=== PATIENT | male | born 1970 | race Caucasian/White ===

== ENCOUNTER 2018-03-08 10:29 | Emergency (ER) | payer BC ==
--- NOTE | 2018-03-08 11:05 | ED ---
Influenza-Like Illness - HPI Summary HPI Summary: This pt is a 47 y/o male [facility] c/o fatigue, chills, and fever. Pt reports he became very fatigued yesterday and around 16:00 yesterday he was very cold "freezing." He states he took his temperature at 21:00 and his temperature was 103F. Pt took Tylenol at 21:30 with mild relied. Pt notes that at 02:00 today his temperature was 102.5F. At 06:00 today his temperature was 100F and he took Advil. Pt states that this morning he woke up "drenched in sweat." Additionally pt reports sore throat. Denies cough, congestion, SOB, chest pain, ear ache. Pt currently states feeling better. He called his PCP today and was advised to come to the ED. PMHx includes asthma and state he has not been using his inhalers as prescribed. - History of Current Complaint Chief Complaint: EDFluSymptoms Time Seen by Provider: 03/08/18 10:54 Hx Obtained From: Patient Onset/Duration: Lasting Hours, Resolved Severity: Moderate Associated Signs & Symptoms: Fever, T Max - at 103F, Myalgia, Sore Throat - Allergy/Home Medications Allergies/Adverse Reactions: Allergies Allergy/AdvReac Type Severity Reaction Status Date / Time Penicillins Allergy Hives Verified 03/08/18 10:39 Home Medications: Home Medications Methylphenidate TAB* [Ritalin TAB*] 20 mg PO DAILY PRN MDD 60mg 03/08/18 [ History Confirmed 03/08/18] Metoprolol Succinate XL TAB* [Toprol XL TAB*] 25 mg PO BEDTIME 03/08/18 [ History Confirmed 03/08/18] Rosuvastatin (NF) [Crestor (NF)] 10 mg PO 1700 03/08/18 [History Confirmed 03/08] PMH/Surg Hx/FS Hx/Imm Hx Endocrine/Hematology History: Denies: Hx Diabetes Comment Only: Other Endocrine/Hematological Disorders - psoriasis Cardiovascular History: Reports: Hx Hypertension Denies: Hx Congestive Heart Failure Respiratory History: Reports: Hx Asthma History: Comment Only: Hx Renal Disease - KIDNEY STONES Musculoskeletal History: Reports: Hx Back Problems - neck also Sensory History: Reports: Hx Contacts or Glasses Opthamlomology History: Reports: Hx Contacts or Glasses - Surgical History Surgery Procedure, Year, and Place: RT.INGUINAL REPAIR, RT.KNEE, ACL REPAIR Infectious Disease History: No Infectious Disease History: Denies: Traveled Outside the [place] in Last 30 Days - Family History Known Family History: Negative: Cardiac Disease, Hypertension, Diabetes - Social History Alcohol Use: None Hx Substance Use: No Substance Use Type: Reports: None Hx Tobacco Use: No Smoking Status (MU): Former Smoker Have You Smoked in the Last Year: No Review of Systems Positive: Fever, Chills, Fatigue, Skin Diaphoresis Positive: Sore Throat. Negative: Ear Ache Negative: Chest Pain Negative: Shortness Of Breath, Cough Negative: Abdominal Pain Genitourinary: Negative Musculoskeletal: Negative All Other Systems Reviewed And Are Negative: Yes Physical Exam - Summary Physical Exam Summary: Appearance: The patient is well-nourished in no acute distress and in no acute pain. Skin: The skin is warm and dry and skin color reflects adequate perfusion. HEENT: The head is normocephalic and atraumatic. The pupils are equal and reactive. The conjunctivae are clear and without drainage. Nares are patent and without drainage. Mouth reveals moist mucous membranes. Posterior pharynx is erythematous. No exudates. The external ears are intact. The ear canals are patent and without drainage. The tympanic membranes are intact. Neck: the neck is supple with full range of motion and non-tender. There are no carotid bruits. There is no neck vein distension. No lymphadenopathy. Respiratory: Chest is non-tender. A little bit of rhonchi at the left base. Cardiovascular: Heart is regular rate and rhythm. There is no murmur or rub auscultated. There is no peripheral edema and pulses are symmetrical and equal. Abdomen: The abdomen is soft and non-tender. There are normal bowel sounds heard in all four quadrants and there is no organomegaly palpated. Musculoskeletal: There is no back tenderness noted. Extremities are non-tender with full range of motion. There is good capillary refill. There is no peripheral edema or calf tenderness elicited. Neurological: Patient is alert and oriented to person, place and time. The patient has symmetrical motor strength in all four extremities. Cranial nerves are grossly intact. Deep tendon reflexes are symmetrical and equal in all four extremities. Psychiatric: The patient has an appropriate affect and does not exhibit any anxiety or depression. Triage Information Reviewed: Yes Vital Signs On Initial Exam: Initial Vitals Temp Pulse Resp BP Pulse Ox 96.7 F 94 17 129/93 97 03/08/18 10:35 03/08/18 10:35 03/08/18 10:35 03/08/18 10:35 03/08/18 10:35 Vital Signs Reviewed: Yes Diagnostics - Vital Signs Vital Signs Temp Pulse Resp BP Pulse Ox 03/08/18 10:35 96.7 F 94 17 129/93 97 - Laboratory Lab Statement: Any lab studies that have been ordered have been reviewed, and results considered in the medical decision making process. Re-Evaluation - Re-Evaluation First Eval Re-Evaluation Time: 12:04 Comment: I reviewed test results with pt. Flu Symptom Course/Dx - Course Course Of Treatment: Mr. Rodriguez presented to the emergency department with a chief complaint of having had a fever last night. He denies any other symptoms except possibly a mild sore throat. His fever was 103 last night and he took Tylenol and it was about 100 this morning and he took ibuprofen. He feels perfectly fine right now. He presented afebrile with normal vitals mildly erythematous throat. He did have a little bit of rhonchorous sounds left worse than the right and he states that his physician tells them that he always has some wheezing. A strep test was negative and we will approach this conservatively as he is asymptomatic at this point. He will return if he has persistent fevers or develops new symptoms. - Diagnoses Provider Diagnoses: Febrile illness Discharge - Sign-Out/Discharge Documenting (check all that apply): Patient Departure - Discharge - Discharge Plan Condition: Stable Disposition: HOME - Billing Disposition and Condition Condition: STABLE Disposition: Home - Attestation Statements Document Initiated by Ramu: Yes Documenting Scribe: Lisa Uribe Provider For Whom Ramu is Documenting (Include Credential): Tacho Cheung MD Scribe Attestation: Lisa Skelton, scribed for Tacho Cheung MD on 03/08/18 at 1213. Scribe Documentation Reviewed: Yes Provider Attestation: The documentation as recorded by the Lisa cooper accurately reflects the service I personally performed and the decisions made by me, Tacho Cheung MD
[2018-03-08 12:23] VITALS: BP 118/91
== END 2018-03-08 12:17 | disposition home or self-care (01) ==
LOC: ED 10:29
DX: R50.9 Fever, unspecified (principal); Z87.891 Personal history of nicotine dependence
CPT/HCPCS: 87651; 99282